=== PATIENT | male | born 1975 | race Caucasian/White ===

== ENCOUNTER 2016-09-20 13:07 | Emergency (ER) | payer OTHER ==
[~2016-09-20] VITALS: Ht 162.6 cm; Wt 77.0 kg
[~2016-09-20 13:07] MED LIST: NAPR-260 PO; NO MEDICATIONS
[2016-09-20 13:10] VITALS: Ht 162.6 cm; Wt 77.0 kg
[2016-09-20] MEDS ORDERED: ONDANSETRON 4 MG INJ IV STA (13:39)
[2016-09-20] MEDS ORDERED: ACETAMINOPHEN 500 MG TAB PO STA (13:39)
[2016-09-20] MEDS ORDERED: KETOROLAC 30 MG INJ IV STA (13:39)
[2016-09-20] MEDS ORDERED: SOD CHLORIDE 0.9% 1,000 ML IV STA (13:39)
[2016-09-20 14:00] LABS: ADD SCAN DIFF NO
[2016-09-20] MEDS ORDERED: morphine 10 MG INJ IV ONE (14:00)
[2016-09-20 14:03] LABS: BASOPHILS % 0.3 % (0.0-2.0); EOSINOPHILS # 0.1 10^3/ul (0.0-0.5); EOSINOPHILS % 1.1 % (0.0-7.0); HEMATOCRIT 43.5 % (42.0-52.0); HEMOGLOBIN 15.2 g/dl (14.0-18.0); LYMPHOCYTES # 2.3 10^3/ul (0.8-2.9); LYMPHOCYTES % 21.3 % (15.0-51.0); MEAN CORPUSCULAR HGB CONC 34.9 g/dl (32.0-37.0); MEAN CORPUSCULAR VOLUME 88.8 fl (82.0-101.0); MONOCYTE # 0.7 10^3/ul (0.3-0.9); MONOCYTES % 6.5 % (0.0-11.0); NEUTROPHIL # 7.4 10^3/ul (1.6-7.5); NEUTROPHILS % 70.5 % (39.0-77.0); PLATELET COUNT 285 10^3/UL (140-415); WHITE BLOOD COUNT 10.6 10^3/ul (4.8-10.8)
[2016-09-20] MEDS ORDERED: CLINDAMYCIN 600 MG/D5W (PMX) 50 ML IVPB STA (14:07)
[2016-09-20] MEDS ORDERED: CLIN-73 PO (14:13)
[2016-09-20] MEDS ORDERED: HYDR-906 PO (14:13)
[2016-09-20 14:16] LABS: POTASSIUM 3.5 mmol/L (3.5-5.1)
[2016-09-20 14:18] LABS: CREATININE 0.8 mg/dl (0.61-1.24)
[2016-09-20 14:19] LABS: ALBUMIN/GLOBULIN RATIO 1.66; BILIRUBIN,INDIRECT 0.7 mg/dl (0-1.1); BILIRUBIN,TOTAL 0.7 mg/dl (0.2-1.3); CALCIUM 9.3 mg/dl (8.4-10.2)
[2016-09-20 15:02] VITALS: BP 121/71; PULSE 77; RESP 18; TEMP 99.5
--- NOTE | 2016-09-20 15:05 | ERD ---
ER Documentation Chief Complaint Date/Time DATE: 09/20/16 TIME: 14:58 Chief Complaint RIGHT FACIAL SWELLING STARTED THIS AM HPI This is a 40-year-old male presenting to the emergency department complaining of right sided facial swelling that started since 230 this morning. Patient states that he has had right upper molar dental pain the past 3 days. Patient states the pain is 8 out of 10. He admits to fever. He has taken 2 Advil's at 230 this morning without any relief. ROS All systems reviewed and are negative except as per history of present illness. Medications Home Meds Active Scripts Hydrocodone/Acetaminophen ([place] 5-325 Tablet) 1 Each Tablet, 1-2 TAB PO Q6, # 30 TAB Prov:LINDA LOYOLA PA-C 09/20/16 Clindamycin Hcl* (Clindamycin Hcl*) 300 Mg Capsule, 300 MG PO TID for 10 Days, CAP Prov:LINDA LOYOLA PA-C 09/20/16 Naproxen* (Naprosyn*) 500 Mg Tablet, 500 MG PO BID Y for PAIN AND/OR INFLAMMATION, #20 TAB Prov:BRIANNA LOPEZ DO 11/22/14 Reported Medications [No Medications] No Conflict Check 12/13/10 Allergies Allergies: Coded Allergies: No Known Allergy (Unverified , 09/20/16) PMhx/Soc History of Surgery: No Anesthesia Reaction: No Hx Neurological Disorder: No Hx Respiratory Disorders: No Hx Cardiac Disorders: No Hx Psychiatric Problems: No Hx Miscellaneous Medical Probl: No Hx Alcohol Use: Yes (OCCASSIONAL) Hx Substance Use: No Hx Tobacco Use: No Smoking Status: Never smoker Physical Exam Vitals Vital Signs Date Time Temp Pulse Resp B/P Pulse Ox O2 Delivery O2 Flow Rate FiO2 09/20/16 13:10 100.7 77 18 151/78 98 Physical Exam General: WD/WN, in no apparent distress, non-toxic appearing HENT: NC/AT. Poor dental hygiene Eyes: Conjunctiva normal Neck: Supple Pulm: Clear to auscultation, normal labored breathing; no wheezing/rales/ rhonchi heard CV: Good capillary refill GI: Non-distended, no guarding Back: No masses Ext: No clubbing, cyanosis, or edema Neuro: Moves on all fours Skin: right side facial swelling 5cm x 5cm with warmth no swelling Psych: Normal mood Result Diagram: 09/20/16 1352 09/20/16 1352 Results 24 hrs Laboratory Tests Test 09/20/16 13:52 White Blood Count 10.610^3/ul Red Blood Count 4.9010^6/ul Hemoglobin 15.2g/dl Hematocrit 43.5% Mean Corpuscular Volume 88.8fl Mean Corpuscular Hemoglobin 31.0pg Mean Corpuscular Hemoglobin Concent 34.9g/dl Red Cell Distribution Width 12.0% Platelet Count 38936^3/UL Mean Platelet Volume 10.0fl Neutrophils % 70.5% Lymphocytes % 21.3% Monocytes % 6.5% Eosinophils % 1.1% Basophils % 0.3% Nucleated Red Blood Cells % 0.0/100WBC Neutrophils # 7.410^3/ul Lymphocytes # 2.310^3/ul Monocytes # 0.710^3/ul Eosinophils # 0.110^3/ul Basophils # 0.010^3/ul Nucleated Red Blood Cells # 0.010^3/ul Sodium Level 141mmol/L Potassium Level 3.5mmol/L Chloride Level 100mmol/L Carbon Dioxide Level 27mmol/L Anion Gap 18 Blood Urea Nitrogen 13mg/dl Creatinine 0.80mg/dl Glucose Level 95mg/dl Calcium Level 9.3mg/dl Total Bilirubin 0.7mg/dl Direct Bilirubin 0.00mg/dl Indirect Bilirubin 0.7mg/dl Aspartate Amino Transf (AST/SGOT) 26IU/L Alanine Aminotransferase (ALT/SGPT) 54IU/L Alkaline Phosphatase 75IU/L Total Protein 8.0g/dl Albumin 5.0g/dl Globulin 3.00g/dl Albumin/Globulin Ratio 1.66 Lipase 120U/L Current Medications Medications (Trade) Dose Ordered Sig/Deion Route PRN Reason Start Time Stop Time Status Last Admin Dose Admin Sodium Chloride (NS) 1,000 ml @ 1,000 mls/hr Q1H STAT IV 09/20/16 13:39 09/20/16 14:38 DC 09/20/16 13:57 Ondansetron HCl (Zofran Inj) 4 mg ONCE STAT IV 09/20/16 13:39 09/20/16 13:42 DC 09/20/16 13:57 Morphine Sulfate (morphine) 6 mg ONCE ONCE IV 09/20/16 14:00 09/20/16 14:01 DC 09/20/16 13:58 Acetaminophen (Tylenol Tab) 1,000 mg ONCE STAT PO 09/20/16 13:39 09/20/16 13:42 DC 09/20/16 13:58 Ketorolac Tromethamine 30 mg 30 mg ONCE STAT IV 09/20/16 13:39 09/20/16 13:42 DC 09/20/16 13:57 Clindamycin HCl/ Dextrose (Cleocin 600 Mg/ D5W (Pmx)) 50 ml @ 50 mls/hr ONCE STAT IVPB 09/20/16 14:07 09/20/16 15:06 09/20/16 14:21 Procedures/MDM This is a 40-year-old male presenting to the emergency department with right- sided facial swelling that started this morning which is likely odontoid abscess. There was no evidence of deep space infection, bacteremia. Patient appears nontoxic. He was febrile with temp of 100.7 IV access is established, patient was given Tylenol, Toradol, morphine and Zofran and 1 L of fluids. Patient was started on clindamycin IV. Patient is suitable to return in 2 days for follow-up and to follow-up with his dentist for dental extraction. Lab work was drawn. CBC did not show any evidence of leukocytosis or anemia. CMP did not show any evidence of renal, liver, or electrolyte abnormalities. Lipase was normal. UA did not show any evidence of hemoglobin or urinary tract infection. I have consulted my supervising physician Dr. Bunn in which she has evaluated the patient and agrees with my plan above. Patient was given prescription for clindamycin and [place]. Patient is to return to the ER for any worsening signs or symptoms. Patient is hematuria stable for discharge with strict precautions to return and to follow-up with a dentist for further action management. He understands and agrees with this plan Departure Diagnosis: Primary Impression: Dental abscess Condition: Stable Patient Instructions: Dental Abscess, Dental Abscess Referrals: [facility] ([facility] walk in clinic) Additional Instructions: Return to this facility in 2 DAYS for a follow-up exam.Return sooner if your condition worsens. Take all medicines as directed. You have been given a medicine which may cause drowsiness.DO NOT DRIVE OR OPERATE DANGEROUS MACHINERY while taking this medicine! Return to this facility if you are not improving as expected. LINDA LOYOLA PA-C Sep 20, 2016 15:05
== END 2016-09-20 15:20 | disposition home or self-care (01) ==
LOC: FTE 13:07
DX: K04.7 Periapical abscess without sinus (principal)
CPT/HCPCS: 80053; 83690; 85025; J1885; J2270; J2405; J7030; Z7610; 36415; 96374; 96375

== ENCOUNTER 2016-09-22 12:16 | Emergency (ER) | payer OTHER ==
[~2016-09-22] VITALS: Ht 165.1 cm; Wt 78.0 kg
[~2016-09-22 12:16] MED LIST changes: +CLIN-73 PO; +HYDR-906 PO
[2016-09-22 12:19] VITALS: Ht 165.1 cm; Wt 78.0 kg
[2016-09-22] MEDS ORDERED: IBUP-1542 PO (13:42)
--- NOTE | 2016-09-22 13:45 | ERD ---
ER Documentation Chief Complaint Date/Time DATE: 09/22/16 TIME: 13:44 Chief Complaint WAS TOLD TO COME BACK FOR RECHECK OF FACIAL SWELLING HPI This is a 40-year-old male presents to the ER for recheck of facial swelling. Patient was seen here yesterday and was given IV clindamycin and sent home with clindamycin for dental abscess. Patient states that today his swelling has significantly gone down and he feels a lot better. He has been controlled. Patient is going to the dentist today. Patient denies any fevers or chills. He denies any pain at the bottom of his mouth. He denies any other swelling. He denies any difficulty in breathing. ROS 12 point review of systems was done, all negative except per HPI. Medications Home Meds Active Scripts Ibuprofen* (Motrin*) 600 Mg Tab, 600 MG PO Q6, #30 TAB Prov:DANY PAULA 09/22/16 Hydrocodone/Acetaminophen ([place] 5-325 Tablet) 1 Each Tablet, 1-2 TAB PO Q6, # 30 TAB Prov:LINDA LOYOLA PA-C 09/20/16 Clindamycin Hcl* (Clindamycin Hcl*) 300 Mg Capsule, 300 MG PO TID for 10 Days, CAP Prov:LINDA LOYOLA PA-C 09/20/16 Naproxen* (Naprosyn*) 500 Mg Tablet, 500 MG PO BID Y for PAIN AND/OR INFLAMMATION, #20 TAB Prov:BRIANNA LOPEZ DO 11/22/14 Reported Medications [No Medications] No Conflict Check 12/13/10 Allergies Allergies: Coded Allergies: No Known Allergy (Unverified , 09/22/16) PMhx/Soc Medical and Surgical Hx: pt denies Medical Hx, pt denies Surgical Hx History of Surgery: No Anesthesia Reaction: No Hx Neurological Disorder: No Hx Respiratory Disorders: No Hx Cardiac Disorders: No Hx Psychiatric Problems: No Hx Miscellaneous Medical Probl: No Hx Alcohol Use: Yes (OCCASSIONAL) Hx Substance Use: No Hx Tobacco Use: No Smoking Status: Never smoker Physical Exam Vitals Vital Signs Date Time Temp Pulse Resp B/P Pulse Ox O2 Delivery O2 Flow Rate FiO2 09/22/16 12:19 98.1 77 20 120/77 99 Physical Exam GENERAL: The patient is well developed and appropriate for usual state of health , in no apparent distress. HEENT: Atraumatic. Patient has minor swelling of the right side of his face. There is no pain to the bottom of his mouth with palpation. There is no tonsillar erythema, uvular deviation, kissing tonsils. CHEST: Clear to auscultation bilaterally. There are no rales, wheezes or rhonchi. HEART: Regular rate and rhythm. No murmurs, clicks, rubs or gallops. NEURO: Alert and oriented. SKIN:The skin is warm and dry. Procedures/MDM This is a 40-year-old male presents to the ER for recheck of his facial swelling. Patient states that he feels significantly better and on examination swelling has improved. Patient is to continue with his clindamycin. He was advised to urgently go to the dentist. I shared my medical decision with the patient he understands and agrees with plan Departure Diagnosis: Primary Impression: Encounter for wound re-check Condition: Stable Patient Instructions: Dental Abscess Referrals: IGNACIO BATISTA (PCP) Additional Instructions: Call your primary care doctor TOMORROW for an appointment during the next 1-2 days.See the doctor sooner or return here if your condition worsens before your appointment time. YOU MUST SEE YOUR DENTIST SOON POSSIBLE! PLEASE GO TODAY! CONTINUE WITH ANTIBIOTICS DANY PAULA Sep 22, 2016 13:45
== END 2016-09-22 14:25 | disposition home or self-care (01) ==
LOC: FTE 12:16
DX: R22.0 Localized swelling, mass and lump, head (principal)
CPT/HCPCS: 99283

== ENCOUNTER 2016-10-06 10:34 | Emergency (ER) | payer OTHER ==
[~2016-10-06] VITALS: Ht 152.4 cm; Wt 76.5 kg
[~2016-10-06 10:34] MED LIST changes: +IBUP-1542 PO
[2016-10-06 10:36] VITALS: Ht 152.4 cm; Wt 76.5 kg
[2016-10-06] MEDS ORDERED: KETOROLAC 30 MG INJ IM STA (13:13)
--- NOTE | 2016-10-06 13:53 | RADRPT ---
PROCEDURE: XR left shoulder. CLINICAL INDICATION: Pain. TECHNIQUE: AP, Internal and external rotation views and a Y-view of the left shoulder were performe d. COMPARISON: No. FINDINGS: The soft tissues and bony elements are normal. Left AC and glenohumeral joints are normal. The lung s are clear. IMPRESSION: 1. Normal left shoulder. < Physician Robbin Date Time Electronically viewed and signed by Allen Hay Physician on 10/06/2016 13:52 ZOYA/
[2016-10-06] MEDS ORDERED: NAPR-260 PO (14:10)
--- NOTE | 2016-10-06 14:40 | ERD ---
ER Documentation Chief Complaint Date/Time DATE: 10/06/16 TIME: 14:37 Chief Complaint Complains of left shoulder pain since yesterday HPI Patient is a 40-year-old male who presents to the ED with left shoulder pain 1 day. He states that at work he was lifting heavy boxes and developed pain to his left shoulder. He denies radiation of pain. Denies numbness or tingling. Denies chest pain, cough, shortness of breath or difficulty breathing. He has not taken any medication for his symptoms. He states that he is able to move his arm but it is painful at the extreme elevation. Denies abdominal pain, nausea, vomiting or diarrhea. Denies syncopal episodes. Denies headache or dizziness. No other complaints. ROS All systems reviewed and are negative except as per history of present illness. Medications Home Meds Active Scripts Naproxen* (Naprosyn*) 500 Mg Tablet, 500 MG PO BID Y for PAIN AND/OR INFLAMMATION, #30 TAB Prov:THERESE FUENTES PA-C 10/06/16 Ibuprofen* (Motrin*) 600 Mg Tab, 600 MG PO Q6, #30 TAB Prov:DANY PAULA 09/22/16 Hydrocodone/Acetaminophen ([place] 5-325 Tablet) 1 Each Tablet, 1-2 TAB PO Q6, # 30 TAB Prov:LINDA LOYOLA PA-C 09/20/16 Clindamycin Hcl* (Clindamycin Hcl*) 300 Mg Capsule, 300 MG PO TID for 10 Days, CAP Prov:LINDA LOYOLA PA-C 09/20/16 Naproxen* (Naprosyn*) 500 Mg Tablet, 500 MG PO BID Y for PAIN AND/OR INFLAMMATION, #20 TAB Prov:BRIANNA LOPEZ DO 11/22/14 Reported Medications [No Medications] No Conflict Check 12/13/10 Allergies Allergies: Coded Allergies: No Known Allergy (Unverified , 09/22/16) PMhx/Soc History of Surgery: No Anesthesia Reaction: No Hx Neurological Disorder: No Hx Respiratory Disorders: No Hx Cardiac Disorders: No Hx Psychiatric Problems: No Hx Miscellaneous Medical Probl: No Hx Alcohol Use: Yes (OCCASSIONAL) Hx Substance Use: No Hx Tobacco Use: No FmHx Family History: No coronary disease, No diabetes, No other Physical Exam Vitals Vital Signs Date Time Temp Pulse Resp B/P Pulse Ox O2 Delivery O2 Flow Rate FiO2 10/06/16 10:36 97.9 50 20 131/75 99 Physical Exam GENERAL: Well-developed, well-nourished male. Appears in no acute distress. HEAD: Normocephalic, atraumatic. EYES: Pupils are equally reactive bilaterally. EOMs grossly intact. No conjunctival erythema. ENT: Moist mucous membranes. No uvula deviation. No kissing tonsils. No exudates. NECK: Supple. No lymphadenopathy or thyromegaly. No meningismus. negative kernig. negative brudinski. LUNG: Clear to auscultation bilaterally. No rhonchi, wheezing, rales or coarse breath sounds. HEART: Regular rate and rhythm. No murmurs, rubs or gallops. Extremities: Equal pulses bilaterally. No peripheral clubbing, cyanosis or edema. No unilateral leg swelling. Positive empty can test. Range of motion limited with abduction and elevation. No swelling. No step-offs or deformities. No open wounds or lacerations. Negative Spurling test. NEUROLOGIC: Alert and oriented. Moving all four extremities. 5/5 strength in all extremities. Normal speech. Steady gait. SKIN: Normal color. Warm and dry. No rashes or lesions. Capillary refill < 2 seconds Results 24 hrs Current Medications Medications (Trade) Dose Ordered Sig/Deion Route PRN Reason Start Time Stop Time Status Last Admin Dose Admin Ketorolac Tromethamine (Toradol) 30 mg ONCE STAT IM 10/06/16 13:13 10/06/16 13:15 DC 10/06/16 13:32 Procedures/MDM ER COURSE: I kept the patient and/or family informed of laboratory and diagnostic imaging results throughout the emergency room course. IMAGING STUDIES [place] [address] Radiology Main Line: [phone] DIAGNOSTIC IMAGING REPORT Patient: YARITZA ALMARAZ : 1975 Age: 40 Sex: M MR #: [id number] DOS: 10/06/16 1313 Ordering MD: THERESE FUENTES PA-C Location: [facility] Room/Bed: PROCEDURE: XR left shoulder. CLINICAL INDICATION: Pain. TECHNIQUE: AP, Internal and external rotation views and a Y-view of the left shoulder were performed. COMPARISON: No. FINDINGS: The soft tissues and bony elements are normal. Left AC and glenohumeral joints are normal. The lungs are clear. IMPRESSION: 1. Normal left shoulder. < Physician Robbin Date Time Electronically viewed and signed by Allen Hay Physician on 10/06/2016 13:52 JM/ CC: THERESE FUENTES PA-C MEDICATIONS Toradol 30 mg IM. Tolerated well with no adverse reaction to MEDICAL DECISION MAKING: This is a 40-year-old male who presents with left shoulder pain 1 day vital signs were reviewed. Patient is afebrile. Patient is not hypoxic. Patient is nontoxic or ill-appearing. Patient's x-rays of by radiologist is unremarkable for fracture dislocation. Patient has left shoulder pain of unknown etiology. Unable to assess tendon or ligament injury. Low suspicion for dislocation, fracture, septic joint, compartment syndrome, osteomyelitis, cellulitis, avascular necrosis, neurological injury, vascular injury, tendon laceration. Patient does have a pulse of 50 here in the ED. He denies any heart conditions , syncopal episode or dizziness. Patient is walking around the waiting room and in the room without any complaints. EKG performed, read by Dr. summers 49 bpm, normal sinus rhythm, normal axis, no acute ST segment changes, no T wave inversion. Low suspicion for ACS, PE, AAA, dissection, DVT DISCHARGE: At this time, patient is stable for discharge and outpatient management with no new complaints during the ER course. Patient was sent home with Naprosyn for pain and a copy of imaging report and to follow-up with orthopedics. Advised patient to use anti-inflammatories, rest, ice for shoulder. A note for work was also given.. Patient will be discharged home with instructions to recheck for new or worsening symptoms such as fever, nausea, weakness, LOC and to follow up with primary care in the next 1-2 days. Patient was advised to return to the ER for any new or worsening symptoms. Plan was discussed and patient and/ or family understands and agrees. Home instructions were given. Departure Diagnosis: Primary Impression: Shoulder pain Laterality: left Chronicity: acute Qualified Code: M25.512 - Acute pain of left shoulder Condition: Stable Patient Instructions: Shoulder Pain (Uncertain Cause) Additional Instructions: Call your primary care doctor TOMORROW for an appointment during the next 1-2 days.See the doctor sooner or return here if your condition worsens before your appointment time. THERESE FUENTES PA-C October 06, 2016 14:40
== END 2016-10-06 14:46 | disposition home or self-care (01) ==
LOC: FTE 10:34
DX: M25.512 Pain in left shoulder (principal)
CPT/HCPCS: 73030; 93005; 96372; J1885; Z7502; Z7610

== ENCOUNTER 2017-04-05 06:40 | Emergency (ER) | payer OTHER ==
[~2017-04-05] VITALS: Ht 160 cm; Wt 77.0 kg
[2017-04-05 06:45] VITALS: Ht 160 cm; Wt 77.0 kg
[2017-04-05] MEDS ORDERED: NAPR-260 PO (07:24)
[2017-04-05] MEDS ORDERED: HYDR-906 PO (07:24)
[2017-04-05] MEDS ORDERED: AMOX1TAB10 PO (07:25)
[2017-04-05] MEDS ORDERED: HYDROCODONE/APAP (5/325) TAB PO ONE (07:30)
--- NOTE | 2017-04-05 07:32 | ERD ---
ER Documentation Chief Complaint Chief Complaint left facial swelling x1 day, thinks its dental related HPI This is a 41-year-old male presents to the emergency department today complaining of left-sided dental pain and some left-sided facial swelling that started last night. She states he has a new dentist and he saw his dentist 3 weeks ago for pain in his tooth and they did do a cleaning but did not remove the tooth at that time. States that the pain improved but now it is back again. States he is taking Motrin for pain. Denies any fevers or chills ROS All systems reviewed and are negative except as per history of present illness. Medications Home Meds Active Scripts Amoxicillin/Potassium Clav (Amox-Clav 875-125 mg Tablet) 875-125 mg Tab, 1 TAB PO BID for 7 Days, #14 TAB Prov:BILL DENNEY PA-C 04/05/17 Naproxen* (Naprosyn*) 500 Mg Tablet, 500 MG PO BID Y for PAIN AND/OR INFLAMMATION, #30 TAB Prov:BILL DENNEY PA-C 04/05/17 Hydrocodone/Acetaminophen ([place] 5-325 Tablet) 1 Each Tablet, 1 TAB PO Q6H Y for PAIN, #7 TAB Prov:BILL DENNEY PA-C 04/05/17 Naproxen* (Naprosyn*) 500 Mg Tablet, 500 MG PO BID Y for PAIN AND/OR INFLAMMATION, #30 TAB Prov:THERESE FUENTES PA-C 10/06/16 Ibuprofen* (Motrin*) 600 Mg Tab, 600 MG PO Q6, #30 TAB Prov:DANY PAULA 09/22/16 Hydrocodone/Acetaminophen ([place] 5-325 Tablet) 1 Each Tablet, 1-2 TAB PO Q6, # 30 TAB Prov:LINDA LOYOLA PA-C 09/20/16 Clindamycin Hcl* (Clindamycin Hcl*) 300 Mg Capsule, 300 MG PO TID for 10 Days, CAP Prov:LINDA LOYOLA PA-C 09/20/16 Naproxen* (Naprosyn*) 500 Mg Tablet, 500 MG PO BID Y for PAIN AND/OR INFLAMMATION, #20 TAB Prov:BRIANNA LOPEZ DO 11/22/14 Reported Medications [No Medications] No Conflict Check 12/13/10 Allergies Allergies: Coded Allergies: No Known Allergy (Unverified , 09/22/16) PMhx/Soc History of Surgery: No Anesthesia Reaction: No Hx Neurological Disorder: No Hx Respiratory Disorders: No Hx Cardiac Disorders: No Hx Psychiatric Problems: No Hx Miscellaneous Medical Probl: No Hx Alcohol Use: Yes (OCCASSIONAL) Hx Substance Use: No Hx Tobacco Use: No Smoking Status: Never smoker Physical Exam Vitals Vital Signs Date Time Temp Pulse Resp B/P Pulse Ox O2 Delivery O2 Flow Rate FiO2 04/05/17 06:45 97.4 84 18 138/91 98 Physical Exam Const: NAD Head: Atraumatic Eyes: Normal Conjunctiva ENT: Normal External Ears, Nose and Mouth. Sided dental pain. No evidence of abscess or deep space infection. Very mild left cheek swelling Neck: Full range of motion..~ No meningismus. Resp: Clear to auscultation bilaterally Cardio: Regular rate and rhythm, no murmurs Abd: Soft, non tender, non distended. Normal bowel sounds Skin: No petechiae or rashes Neur: Awake and alert Psych: Normal Mood and Affect Results 24 hrs Current Medications Medications (Trade) Dose Ordered Sig/Deion Route PRN Reason Start Time Stop Time Status Last Admin Dose Admin Acetaminophen/ Hydrocodone Bitart ([place] (5/325)) 1 tab ONCE ONCE PO 04/05/17 07:30 04/05/17 07:31 04/05/17 07:17 Procedures/MDM This is a 41-year-old male who presents the emergency department today weaning of left-sided dental pain and some cheek swelling that started last night. On physical exam patient does not appear to have evidence of a dental abscess. He has some very mild cheek swelling. He is in no acute distress. He is afebrile and otherwise well-appearing. Symptoms at this time is consistent with dental pain. I will cover the patient with antibiotics for possible early abscess. Low suspicion for sepsis or deep space tracking infection. patient does indicate that he has a dentist that he saw 3 weeks ago. I have instructed the patient follow back up with the dentist. Patient was given one [place] here in the emergency department. He was given a very short course of [place] for home in addition to Naprosyn and Augmentin. At this time the patient is stable for discharge and outpatient management. Patient should follow up with their PCP in the next 1-2 days. They may return to the emergency department sooner for any persistent or worsening of symptoms. Patient understood and agreed with the plan. Departure Diagnosis: Primary Impression: Pain, dental Condition: Fair Patient Instructions: Dental Pain Additional Instructions: Call your primary care doctor TOMORROW for an appointment during the next 1-2 days.See the doctor sooner or return here if your condition worsens before your appointment time. Make an appointment with your dentist next week. Take [place] for severe pain otherwise take Naprosyn or Tylenol or Motrin Take antibiotics as prescribed BILL DENNEY PA-C Apr 05, 2017 07:32
== END 2017-04-05 08:12 | disposition home or self-care (01) ==
LOC: FTE 06:40
DX: K08.89 Other specified disorders of teeth and supporting structures (principal)
CPT/HCPCS: Z7502; Z7610; 99284